=== PATIENT | female | born 1975 | race Caucasian/White ===

== ENCOUNTER → 2023-07-04 06:29 | Day surgery (SDC) | payer OTHER, SELFPAY | LOC: GI 06:29 | PROVIDERS: ATTENDING PHYSICIAN Internal Medicine; FAMILY PHYSICIAN Nurse Practitioner Adult Health | DX: Z12.11 Encounter for screening for malignant neoplasm of colon (principal) | CPT/HCPCS: G0121 ==

== ENCOUNTER → 2023-11-20 13:01 | Outpatient (REF) | payer OTHER, SELFPAY | LOC: WDC 13:01 | PROVIDERS: ATTENDING PHYSICIAN Obstetrics & Gynecology; FAMILY PHYSICIAN Nurse Practitioner Adult Health | DX: Z12.31 Encounter for screening mammogram for malignant neoplasm of breast (principal) | CPT/HCPCS: 77063; 77067 ==

== ENCOUNTER → 2024-03-26 08:52 | Outpatient (REF) | payer OTHER, SELFPAY | LOC: WDC 08:52 | PROVIDERS: ATTENDING PHYSICIAN Obstetrics & Gynecology; FAMILY PHYSICIAN Nurse Practitioner Adult Health | DX: N63.21 Unspecified lump in the left breast, upper outer quadrant (principal) | CPT/HCPCS: 76642 ==

== ENCOUNTER → 2024-04-04 09:33 | Outpatient (REF) | payer OTHER, SELFPAY ==
--- NOTE | 2024-04-04 14:01 | OID.BR.INTR ---
[facility] Breast Navigator - Initial
- -
Date of Contact: 04/04/24
Met with patient. Will follow up as needed per protocol.
== END ==
LOC: WDC 09:33
PROVIDERS: ATTENDING PHYSICIAN Obstetrics & Gynecology; FAMILY PHYSICIAN Nurse Practitioner Adult Health
DX: N63.21 Unspecified lump in the left breast, upper outer quadrant (principal); N63.32 Unspecified lump in axillary tail of the left breast
CPT/HCPCS: 88172; 88173; 10005; 88177

== ENCOUNTER → 2024-04-11 12:51 | Outpatient (REF) | payer OTHER, SELFPAY | LOC: WDC 12:51 | PROVIDERS: ATTENDING PHYSICIAN Surgery | DX: R92.2 Inconclusive mammogram (principal); C50.412 Malignant neoplasm of upper-outer quadrant of left female breast | CPT/HCPCS: 76641 ==

== ENCOUNTER → 2024-04-15 12:06 | Outpatient (REF) | payer OTHER, SELFPAY | LOC: CLAB 12:06 | PROVIDERS: ATTENDING PHYSICIAN Surgery | DX: C50.412 Malignant neoplasm of upper-outer quadrant of left female breast (principal) | CPT/HCPCS: 88305; 88341; 88342; 88360 ==

== ENCOUNTER → 2024-04-23 12:37 | Outpatient (REF) | payer OTHER, SELFPAY | LOC: RAD 12:37 | PROVIDERS: ATTENDING PHYSICIAN Internal Medicine Hematology & Oncology; FAMILY PHYSICIAN Nurse Practitioner Adult Health | DX: C50.412 Malignant neoplasm of upper-outer quadrant of left female breast (principal) | CPT/HCPCS: 71046 ==

== ENCOUNTER → 2024-04-23 13:32 | Outpatient (REF) | payer OTHER, SELFPAY ==
[2024-04-23 15:36] LABS: % Basophils 0.4 % (0-2); % Eosinophils 0.9 % (0-6); % Monocytes 7.1 % (1.7-9.3); % Neutrophils 51.6 % (42.2-75.2); Absolute Eosinophils 0.1 10^3/uL (0-0.7); Absolute Lymphocytes 2.2 10^3/uL (1.2-3.4); Absolute Monocytes 0.4 10^3/uL (0.1-0.6); Absolute Neutrophils 2.9 10^3/uL (1.4-6.5); Hematocrit 38.9 % (37.0-47.0); Hemoglobin 13.7 g/dL (12.0-16.0); Mean Corp Hgb Conc. 35.2 g/dL (33.0-37.0); Mean Corpuscular Hgb 33.7 pg (27.0-31.0); Mean Corpuscular Volume 95.8 fL (81.0-99.0); Mean Platelet Volume 9.1 fL (7.4-10.4); Platelet Count 281 10^3/uL (130-400); Red Blood Cell Count 4.06 10^6/uL (4.20-5.40); Red Cell Dist. Width 11.1 % (11.5-14.5); White Blood Cell Count 5.5 10^3/uL (4.8-10.8)
[2024-04-23 16:37] LABS: ALT (SGPT) 18 U/L (0-35); AST (SGOT) 24 U/L (14-36); Albumin 4.6 g/dl (3.5-5.0); Alkaline Phosphatase 55 U/L (38-126); Blood Urea Nitrogen 15 mg/dl (7-17); Calcium 9.7 mg/dl (8.4-10.2); Carbon Dioxide 28 mmol/L (22-30); Chloride 101 mmol/L (98-107); Glucose 95 mg/dl (70-99); Potassium 4.1 mmol/L (3.5-5.1); Sodium 138 mmol/L (135-145); Total Bilirubin 0.5 mg/dl (0.2-1.3); Total Protein 7.6 g/dl (6.3-8.2); eGFR > 60.00
== END ==
LOC: OIDL 13:32
PROVIDERS: ATTENDING PHYSICIAN Internal Medicine Hematology & Oncology; FAMILY PHYSICIAN Nurse Practitioner Adult Health
DX: C50.412 Malignant neoplasm of upper-outer quadrant of left female breast (principal)
CPT/HCPCS: 36415; 80053; 85025

== ENCOUNTER 2024-04-29 06:14 | Day surgery (SDC) | payer OTHER, SELFPAY ==
[2024-04-29] VITALS (8 sets, daily range): BP systolic 93–120; BP diastolic 60–79; BMI 23.9
[2024-04-29] MEDS: NSS 1000 IV (12:39)
[2024-04-29] MEDS: TYLENOL 1000 MG PO (12:39)
[2024-04-29] MEDS: VANCOCIN 200 IV (12:42)
--- NOTE | 2024-04-29 14:12 | W.IMMPOSTOP ---
Surgical Immed Post Op Note
-
Primary Surgeon: Rafat
Assisting Surgeon: None
Pre-op Diagnosis: Left breast ca
Post-op Diagnosis: Same
Procedure Performed: Insertion right portacath
Anesthesia Type: TIVA
Specimen / Cultures: None
Estimated Blood Loss: 2cc
Complications: None
Operative Findings: None
--- NOTE | 2024-04-29 14:13 | OR.RPT ---
Operative Report
Operative Report
Pre-Op DX: left breast ca
Post-Op DX: left breast ca
Procedure: Insertion right portacath
Surgeon: Rafat
The patient is a 48-year-old female with HER2 positive left breast carcinoma who presents for right Port-A-Cath insertion for the administration of neoadjuvant chemotherapy. The patient presented to same-day surgical services where she verified
site and procedure. A liter of normal saline was infused intravenously and DVT and antibiotic prophylaxis were provided. The patient was taken to the operating room and in the supine position with shoulder roll in place, the right chest and neck
were prepped and draped in the usual sterile fashion. All tissues were anesthetized with 1% lidocaine plain after an appropriate timeout procedure was performed. Patient was placed in Trendelenburg position and via Seldinger technique right
subclavian vein was entered percutaneously in the first attempt. Guidewire was advanced under fluoroscopic guidance into the superior vena cava and the needle was withdrawn and the wire was secured to the drapes. Inferior to the exit site of the
guidewire a subcutaneous port pocket was fashioned sharply and with the cautery. A low-profile single-lumen port flushed with heparinized saline was passed into the pocket catheter was passed to the exit site of the guidewire and cut to a length of
19 cm under fluoroscopic guidance. This was securely attached to the hub of the catheter. Under fluoroscopic guidance the wire tract was dilated. Dilator and sheath were then passed over the wire and the wire and dilator were removed. The
catheter passed easily through the tear-away sheath which was removed. Good position of the tip in the superior vena cava was noted. The port aspirated and flushed well. The patient was taken out of Trendelenburg position hemostasis was verified
and Marcaine 0.5% plain was instilled into all tissues. Wound was closed using simple interrupted 3-0 plain of subcutaneous tissue and a running subcuticular 4 Monocryl on skin. Surgical glue and a sterile compressive dressing were applied. All
sponge needle and instrument counts were correct. The patient was transferred to same-day surgery where a stat portable chest x-ray will be obtained.
([id number])
== END 2024-04-29 15:40 | disposition home or self-care (01) ==
LOC: SDS 06:14
PROVIDERS: ATTENDING PHYSICIAN Surgery
PROC: 02HV33Z Insertion of Infusion Device into Superior Vena Cava, Percutaneous Approach (ICD-10-PCS; 2024-04-29)
PROC: 0JH63WZ Insertion of Totally Implantable Vascular Access Device into Chest Subcutaneous Tissue and Fascia, Percutaneous Approach (ICD-10-PCS; 2024-04-29)
DX: C50.912 Malignant neoplasm of unspecified site of left female breast (principal); Z17.31 Human epidermal growth factor receptor 2 positive status
CPT/HCPCS: 36561; 71045; 76000; C1788

== ENCOUNTER → 2024-04-30 10:29 | Outpatient (REF) | payer OTHER, SELFPAY | LOC: RCS 10:29 | PROVIDERS: ATTENDING PHYSICIAN Internal Medicine Hematology & Oncology; FAMILY PHYSICIAN Nurse Practitioner Adult Health | DX: C50.412 Malignant neoplasm of upper-outer quadrant of left female breast (principal) | CPT/HCPCS: 93306; 93356 ==

== ENCOUNTER → 2024-05-06 08:28 | Outpatient (REF) | payer OTHER, SELFPAY | LOC: WDC 08:28 | PROVIDERS: ATTENDING PHYSICIAN Surgery | DX: C50.412 Malignant neoplasm of upper-outer quadrant of left female breast (principal) | CPT/HCPCS: 19285; A4648 ==

== ENCOUNTER → 2024-05-21 14:32 | Outpatient (REF) | payer OTHER, SELFPAY | LOC: WDC 14:32 | PROVIDERS: ATTENDING PHYSICIAN Internal Medicine Hematology & Oncology | DX: C50.412 Malignant neoplasm of upper-outer quadrant of left female breast (principal); N64.59 Other signs and symptoms in breast | CPT/HCPCS: 76642 ==

== ENCOUNTER 2024-06-06 06:22 | Outpatient (RCR) | payer OTHER, SELFPAY | END 2024-06-06 23:59 | disposition home or self-care (01) | LOC: RPT 06:22 | PROVIDERS: ATTENDING PHYSICIAN Internal Medicine Cardiovascular Disease; FAMILY PHYSICIAN Internal Medicine | DX: C50.412 Malignant neoplasm of upper-outer quadrant of left female breast (principal); R53.0 Neoplastic (malignant) related fatigue; Z73.6 Limitation of activities due to disability; M62.81 Muscle weakness (generalized) | CPT/HCPCS: 97110; 97163; 97530 ==

== ENCOUNTER → 2024-06-23 16:31 | Outpatient (REF) | payer OTHER, SELFPAY | LOC: MRI 3T 16:31 | PROVIDERS: ATTENDING PHYSICIAN Surgery; FAMILY PHYSICIAN Nurse Practitioner Adult Health | DX: N64.59 Other signs and symptoms in breast (principal) | CPT/HCPCS: 77049; A9585 ==

== ENCOUNTER 2024-06-25 13:06 | Outpatient (RCR) | payer OTHER, SELFPAY | END 2024-06-25 23:59 | disposition home or self-care (01) | LOC: RPT 13:06 | PROVIDERS: ATTENDING PHYSICIAN Internal Medicine Cardiovascular Disease; FAMILY PHYSICIAN Internal Medicine | DX: C50.412 Malignant neoplasm of upper-outer quadrant of left female breast (principal); R53.0 Neoplastic (malignant) related fatigue; Z73.6 Limitation of activities due to disability; M62.81 Muscle weakness (generalized) | CPT/HCPCS: 97110; 97530 ==

== ENCOUNTER → 2024-08-02 10:17 | Outpatient (REF) | payer OTHER, SELFPAY | LOC: RCS 10:17 | PROVIDERS: ATTENDING PHYSICIAN Internal Medicine Cardiovascular Disease; FAMILY PHYSICIAN Nurse Practitioner Adult Health | DX: Z85.3 Personal history of malignant neoplasm of breast (principal); T45.1X5D Adverse effect of antineoplastic and immunosuppressive drugs, subsequent encounter; R00.0 Tachycardia, unspecified | CPT/HCPCS: 93306; 93356 ==

== ENCOUNTER 2024-08-06 16:24 | Outpatient (RCR) | payer OTHER, SELFPAY | END 2024-08-06 23:59 | disposition home or self-care (01) | LOC: RPT 16:24 | PROVIDERS: ATTENDING PHYSICIAN Internal Medicine Cardiovascular Disease; FAMILY PHYSICIAN Internal Medicine | DX: C50.412 Malignant neoplasm of upper-outer quadrant of left female breast (principal); R53.0 Neoplastic (malignant) related fatigue; M62.81 Muscle weakness (generalized); Z73.6 Limitation of activities due to disability | CPT/HCPCS: 97110; 97112; 97530 ==

== ENCOUNTER 2024-08-25 14:05 | Outpatient (RCR) | payer OTHER, SELFPAY | END 2024-08-25 23:59 | disposition home or self-care (01) | LOC: RPT 14:05 | PROVIDERS: ATTENDING PHYSICIAN Internal Medicine Cardiovascular Disease; FAMILY PHYSICIAN Internal Medicine | DX: C50.412 Malignant neoplasm of upper-outer quadrant of left female breast (principal); R53.0 Neoplastic (malignant) related fatigue; M62.81 Muscle weakness (generalized); Z73.6 Limitation of activities due to disability | CPT/HCPCS: 97110; 97530 ==

== ENCOUNTER → 2024-09-20 08:34 | Outpatient (REF) | payer OTHER, SELFPAY | LOC: MRI 08:34 | PROVIDERS: ATTENDING PHYSICIAN Internal Medicine Hematology & Oncology; FAMILY PHYSICIAN Nurse Practitioner Adult Health | DX: C50.412 Malignant neoplasm of upper-outer quadrant of left female breast (principal) | CPT/HCPCS: 70553; A9575 ==

== ENCOUNTER 2024-09-23 09:09 | Outpatient (RCR) | payer OTHER, SELFPAY | END 2024-09-23 23:59 | disposition home or self-care (01) | LOC: RPT 09:09 | PROVIDERS: ATTENDING PHYSICIAN Surgery; FAMILY PHYSICIAN Internal Medicine | DX: C50.412 Malignant neoplasm of upper-outer quadrant of left female breast (principal); R53.0 Neoplastic (malignant) related fatigue; Z73.6 Limitation of activities due to disability; M62.81 Muscle weakness (generalized) | CPT/HCPCS: 97163; 97164; 97530 ==

== ENCOUNTER 2024-09-24 06:12 | Inpatient (IN) | payer OTHER, SELFPAY ==
[2024-09-24] VITALS (15 sets, daily range): BP systolic 0–109; BP diastolic 56–71; BMI 22.5
[2024-09-24] MEDS: NORMOSOL-R/PLASMALYTE-A 1000 IV (06:45)
[2024-09-24] MEDS: EMEND 40 MG PO (06:57)
--- NOTE | 2024-09-24 07:09 | W.SUR.PREOP ---
Pre-Operative Surgical Note
-
I have examined this patient prior to the performance of the scheduled procedure.
The patient's condition is unchanged from the time of the current History and
Physical and the patient is able to undergo the scheduled procedure.
[2024-09-24] MEDS: LOVENOX 0.2 MG SC (08:11)
--- NOTE | 2024-09-24 11:03 | W.IMMPOSTOP ---
Surgical Immed Post Op Note
-
Primary Surgeon: marcelo
Assisting Surgeon: None
Pre-op Diagnosis: Left breast ca
Post-op Diagnosis: Same
Procedure Performed: Bilateral nipple-sparing mastectomies, bilateral sentinel node mappings and biopsies
Anesthesia Type: LMA general
Specimen / Cultures: Bilateral breasts, right and left sentinel nodes, right retroareolar tissue
Estimated Blood Loss: 20cc
Complications: None
Operative Findings: None
--- NOTE | 2024-09-24 11:05 | OR.RPT ---
Operative Report
Operative Report
Date of procedure: 09/24/2024
Surgeon: Rafat
Preoperative diagnosis: Left breast carcinoma status post neoadjuvant chemotherapy
Postoperative diagnosis: Same
Procedure: Bilateral nipple sparing mastectomies and bilateral sentinel lymph node mapping and biopsies
Patient is a 48-year-old female who presented with left-sided HER2 positive breast carcinoma. She underwent neoadjuvant chemotherapy and presents now for definitive surgical resection. On post chemo MRI there is a question of 2 areas in the right
breast for which biopsy had been recommended. Because the patient declined those biopsies and wanted a prophylactic mastectomy on the right sentinel node mapping and biopsy will be performed in case there is a new cancer diagnosis on the right side.
On the day prior to the procedure the patient presented to the [facility] where technetium radiotracer injection was performed on both sides. On the day of the procedure the patient presented to same-day surgical services. She was
prepped and verified site and procedures. DVT and antibiotic prophylaxis were provided. She was taken to the operating room and in the supine position intravenous sedation general anesthesia with an LMA mask was induced. All team members
including Plastics was present for an appropriate timeout.
Ann catheter was inserted using aseptic technique and both chest and upper abdominal abdominal regions were prepped and draped in usual sterile fashion. Attention was first turned to the left side where an inframammary incision was made sharply
with the blade. The breast was elevated off the pectoral fascia using the PlasmaBlade and the Invuity lighted retractor. Then the breast skin and subcutaneous tissue was off the breast tissue in the same manner. The breast was taken off
the chest wall, oriented. and time out of body was noted. It was sent for permanent analysis. There was some redundant tissue around the right nipple areolar complex which was excised and sent under separate cover. Then clavipectoral fascia was
incised and using the neoprobe one sentinel node packet was encountered and excised. This was sent for permanent analysis
Moist dressing was applied and plastic surgery entered to begin the plastic surgical reconstruction.
We switched to the left side and in the same fashion formed an inframammary incision and removed breast tissue while preserving the nipple complex. A total of 3 sentinel nodes were harvested from the left side dual tracer had been utilized after
appropriate massage and these lymph nodes were sent for permanent analysis. Hemostasis was verified and a moist pack was placed plastic surgery continued with the reconstructive portion of the procedure.
At this juncture all sponge needle and instrument counts were correct
([id number])
Warden Node Bx Breast Cancer
Warden Node Bx Breast Cancer
Operation performed with curative intent: Yes
Tracer(s) to ID Warden Nodes in Non-Neoadjuvant setting: Radioactive Tracer
Tracer(s) to ID Sentinal Nodes in the Neoadjuvant Setting: Dye and Radioactive Tracer
All nodes at end of dye-filled Lymphatic Channel removed: Yes
All Significantly Radioactive Nodes were removed: Yes
All Palpably Suspicious Nodes were Removed: Yes
Bx Proven Pos Nodes Marked Prior to Chemo ID'd & Removed: N/A
--- NOTE | 2024-09-24 12:43 | W.DCSUMMARY ---
Discharge Summary
Discharge Data
Date of Admission: 09/24/24
Date of Discharge: 09/25/24
-
Pending Results: No
Hospital Course
Routine postoperative course following bilateral mastectomy and immediate reconstruction with tissue expanders
Discharged to home with VN. Ambulating, po meds, regular diet.
Discharge Plan
-
Patient Disposition: Home with Home Care
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
Condition: Good
Diet: No restrictions
Activity: No strenuous activity
Additional Activity: T-Jose arms for ROM, no heavy lifting > 10lbs
Driving Restrictions: Not until seen by your Dr
Bathing Restrictions: OK to Shower
Other Services: VN
Wound Care: Strip and record drain output twice daily
Referrals:
Chelo Morin CRNP [Family Provider, General]
Prescriptions:
New
gabapentin 100 mg Capsule
100 mg PO TID 90 Days Qty: 270 0RF
tramadol 50 mg Tablet
50 mg PO Q6HPRN PRN (Reason: pain) 7 Days Qty: 15 0RF
acetaminophen 500 mg capsule
1,000 mg PO QID PRN (Reason: Pain) Qty: 360 0RF
diazepam 5 mg Tablet
5 mg PO TIDPRN PRN (Reason: Muscle Spasms) 14 Days Qty: 42 0RF
cefadroxil 500 mg capsule
500 mg PO BID Qty: 42 0RF
Continued
spironolactone 100 mg Tablet
100 mg PO HS
Emgality Syringe 120 mg/mL Syringe
120 mg SC QMONTH
sumatriptan succinate [Imitrex] 100 mg Tablet
100 mg PO ONCE PRN (Reason: migraine)
minoxidil 2.5 mg Tablet
0.6 mg PO DAILY
thyroid (pork) [[place] Thyroid] 90 mg Tablet
90 mg PO .TUTHSASU
thyroid (pork) [[place] Thyroid] 120 mg Tablet
120 mg PO MOWEFR
omega 3-bro-vbi-fish oil [Fish Oil] 60-90-500 mg Capsule
1 cap PO DAILY
magnesium 200 mg Tablet
200 mg PO DAILY
vitamin U07-xbpco acid 0.5-1 mg Tablet
1 tab PO DAILY
cholecalciferol (vitamin D3) [Vitamin D3] 25 mcg (1,000 unit) Tablet
25 mcg PO DAILY
ferrous sulfate 27 mg iron Tablet
27 mg PO DAILY
Probiotic
1 dose PO DAILY
Nuadapt
1 tab PO DAILY
Nutrafol
4 tab PO HS
Veozah 45 mg Tablet
45 mg PO HS
Discontinued
cephalexin 500 mg Capsule
500 mg PO QID
Discharge Orders:
Discharge Patient (As Directed); Ordered 09/25/24
Ordered By: Nish Prieto
Discharge Date and Time
Discharge Date/Time: 09/25/24 13:10
Print Language: FAROESE
--- NOTE | 2024-09-24 12:43 | W.IMMPOSTOP ---
Surgical Immed Post Op Note
-
Primary Surgeon: ALLEN Prieto MD
Assisting Surgeon:
Pre-op Diagnosis: Breast cancer
Post-op Diagnosis: Same
Procedure Performed: Bilateral prepectoral breast reconstruction with tissue expanders, ADM, spy angiography
Anesthesia Type: General
Specimen / Cultures: Per Dr. Douglass
Estimated Blood Loss: 30 cc
Complications: None
Operative Findings: As expected
[2024-09-24] MEDS: DILAUDID 0.25 MG IV ×2 (12:44→13:36)
--- NOTE | 2024-09-24 12:44 | OR.RPT ---
Operative Report
Operative Report
Date of surgery: 09/24/2024
Surgeon: ALLEN Prieto MD
Preoperative diagnosis: Breast cancer
Postoperative diagnosis: Same
Procedure:
1. Bilateral immediate breast reconstruction with prepectoral tissue expanders
2. Total anterior coverage technique for ADM wrap
3. Spy angiography
Complications: None
Anesthesia: General
EBL: 30cc
Utilization Review Nurse size: 12 cm
Indications for procedure: Patient was referred to me by Dr. Douglass with a recent diagnosis of breast cancer. She was planned to undergo bilateral mastectomy. We discussed her options for breast reconstruction at length including implant based
and autologous options. The patient opted for immediate reconstruction with tissue expanders. She understands that the final reconstruction will be staged. We also discussed the use of ADM and spy angiography. Risks include reconstructive
failure, capsular contracture, infection, delayed wound healing, mastectomy skin flap necrosis, hematoma, seroma and need for repeat procedure. Patient understood these risks and desired to proceed. Consents were signed accordingly.
Procedure in detail: Patient was identified the preoperative area and the surgical site was confirmed to be the bilateral breast. All questions were answered and consents were confirmed. Patient was then sat upright and normal anatomical landmarks
were marked including midline and inframammary fold. Patient was then taken back to the operating room placed supine on the table. She was prepped and draped in the usual sterile fashion using ChloraPrep solution. A Ann catheter was placed. A
timeout for patient safety was performed was confirmed that bilateral SCDs were in place and preoperative antibiotics administered. The procedure began with Dr. Douglass first performing the mastectomy. Her op report will be dictated separately.
When I entered the procedure, the first sided mastectomy had been completed. As such I inspected the wound bed of the chest wall and ensured meticulous hemostasis. The base width was measured and appropriate tissue desulfurizer machine was selected. Two 6 x
16 sheets of Cortiva ADM were soaked in dilute Betadine solution and passed through the skin graft mesher on carrier of 1-1.5. This construct was then draped around the tissue desulfurizer machine in a total anterior coverage technique. The desulfurizer machine ADM
construct was then sutured to the chest wall with a series of 2-0 silk sutures. Pectoralis and intercostal blocks were performed with Marcaine. 2 drains were then placed in the preaxial area line with a long subcutaneous tunnel and sutured in
place with 2-0 Prolene sutures. The wound was irrigated with double antibiotic solution and dilute Betadine. The mastectomy incisions were then closed with a series of 3-0 Vicryl's in the deep subcutaneous tissues followed by 3-0 and 4-0
Monocryl's in the deep dermis and superficial skin.
Attention was then placed on the contralateral side after completion of the mastectomy. The exact same procedure was performed. An desulfurizer machine of the same size was opened and 2 sheets of ADM were soaked in Betadine, meshed, and draped around the
anterior surface of the desulfurizer machine in a total anterior coverage technique. The construct was then sutured to the chest wall using 2-0 silks. Pectoralis and intercostal blocks were performed. Meticulous hemostasis was ensured and the wound was
irrigated with combination of double antibiotic solution consisting of Ancef and gentamicin as well as dilute Betadine. The wound was closed in layers with 3-0 Vicryl followed by 3-0 Monocryl and 4-0 Monocryl superficial skin.
Spy angiography was performed after closure to ensure adequate vascularity of the bilateral mastectomy flaps. This was confirmed. The wounds were dressed accordingly and a supportive bra was placed. The patient was extubated taken to the PACU for
further care. All counts were correct at the end the case was performed out complication.
[2024-09-24] MEDS: ANCEF 5 IV (16:05)
[2024-09-24] MEDS: COMPAZINE 5 MG IV ×2 (16:50→22:59)
--- NOTE | 2024-09-24 16:58 | PTCARENOTE ---
Pt arrived to [facility] s/p b/l masectomy with reconstruction. Pt arrived with 2 CIRILO drains on the right breast and 2 CIRILO drains on the left breast. B/l breasts dressing with 4x4, tegaderm and surgical bra. Knee high SCDs hooked up. Admission questions
answered. Bed locked and in lowest position. Care ongoing.
[2024-09-24] MEDS: TYLENOL 1000 MG PO ×2 (17:10→23:10)
[2024-09-25] MEDS: ANCEF 5 IV ×2 (01:01→09:16)
[2024-09-25 03:05] VITALS: BP 98/66
[2024-09-25] MEDS: ULTRAM 100 MG PO (04:32)
[2024-09-25] MEDS: TYLENOL 1000 MG PO ×2 (05:12→11:35)
[2024-09-25 06:22] LABS: Hematocrit 33.5 % (37.0-47.0); Hemoglobin 11.5 g/dL (12.0-16.0)
[2024-09-25 07:03] LABS: Blood Urea Nitrogen 16 mg/dl (7-17); Calcium 9.2 mg/dl (8.4-10.2); Carbon Dioxide 25 mmol/L (22-30); Chloride 105 mmol/L (98-107); Estimated Creatinine Clearance 74 ml/min; Glucose 121 mg/dl (70-99); Potassium 4.4 mmol/L (3.5-5.1); Sodium 134 mmol/L (135-145); eGFR > 60.00
[2024-09-25 07:05] VITALS: BP 113/63
--- NOTE | 2024-09-25 09:10 | CM ---
CM following re: discharge planning.
Reviewed pt's chart, met with pt and pt's at bedside.
Pt is a 48 year old female, admitted with primary dx of POD#1 Bilateral prepectoral breast reconstruction with tissue expanders, ADM, spy angiography.
Pt reports she lives with and 2 daughters 9 and 16 year of age in a [place]. 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
CM consulted to arrange VN services for drain care. CM discussed it with the pt and she expressed her agreement. VN choices given. [facility] preferred. A referral to VN made.
Discharge order noted. Pt is aware. Pt's will transport home.
PCP: Chelo Morin
Pharmacy: [facility]
Please fax discharge instructions to [facility] at [phone]
D/C plan: home with [facility] and family support. to transport.
[2024-09-25] MEDS: FLUSH (NSS) 1 FLUSH IV (09:16)
--- NOTE | 2024-09-25 09:54 | VNURNOTE ---
Home Health Liaison met with patient and spouse at bedside to discuss [facility] nurse/therapy, visits, schedule and homebound status. Patient is agreeable and understands that visits at home will be 2-3 x per week to assess and teach medical and drain
management. Patient's mom is a retired RN and will assisting her at home as well. Patient is aware that [facility] will contact them for start of care in 1-2 days after discharge from .
[facility] referral completed in Care Port.
[2024-09-25] MEDS: VALIUM 5 MG PO (10:59)
[2024-09-25 11:38] VITALS: BP 115/63
== END 2024-09-25 13:10 | disposition home health service (06) | DRG 581 ==
LOC: 2 SOUTH 06:12
PROVIDERS: ADMITTING PHYSICIAN Surgery; ATTENDING PHYSICIAN Surgery Plastic and Reconstructive Surgery; FAMILY PHYSICIAN Nurse Practitioner Adult Health
PROC: 0HTV0ZZ Resection of Bilateral Breast, Open Approach (ICD-10-PCS; 2024-09-24)
PROC: 07B90ZX Excision of Left Internal Mammary Lymphatic, Open Approach, Diagnostic (ICD-10-PCS; 2024-09-24)
PROC: 0HHV0NZ Insertion of Tissue Expander into Bilateral Breast, Open Approach (ICD-10-PCS; 2024-09-24)
PROC: 07B80ZX Excision of Right Internal Mammary Lymphatic, Open Approach, Diagnostic (ICD-10-PCS; 2024-09-24)
PROC: C71L1ZZ Planar Nuclear Medicine Imaging of Upper Chest Lymphatics using Technetium 99m (Tc-99m) (ICD-10-PCS; 2024-09-24)
DX: C50.412 Malignant neoplasm of upper-outer quadrant of left female breast (principal); Z92.21 Personal history of antineoplastic chemotherapy; Z17.31 Human epidermal growth factor receptor 2 positive status
CPT/HCPCS: 80048; 85014; 85018; 88307; 88342; C1789; L8000; Q4100

== ENCOUNTER 2024-10-06 00:02 | Inpatient (IN) | payer OTHER, SELFPAY ==
[2024-10-05 20:23] VITALS: BP 126/78
--- NOTE | 2024-10-05 21:04 | ED.GENMED ---
History of Present Illness
General
Chief Complaint: Post Operative Problem(s)
Source: patient and family
Time Seen by Provider: 10/05/24 20:47
History of Present Illness
History of Present Illness:
This patient is a 48-year-old female with a recent diagnosis of breast cancer status post double mastectomy with spacer placement who has been recovering well at home. 2 days ago she noted what she thought was 'irritation' at the bilateral drainage
site. Yesterday, she noted redness at that area which has gotten progressively worse today associated with a fever at 3 PM. She denies cough, sore throat, rhinorrhea, chest pain, dyspnea, urinary symptoms, vaginal pain or discharge, diarrhea,
constipation. She has mild lower back discomfort which she thinks may be related to positioning. Otherwise she denies any complaints. Patient does report a recent history of a port infection and has been on oral antibiotics for several weeks.
Past History
Past History
ED Past Medical History: Other (Thyroid disease)
ED Past Surgical History: Gynecological
Social History
Tobacco: Non-smoker
Alcohol: None
Drug: None
Personal:
Living: with family
Phy Exam
Physical Exam
Physical Exam:
GENERAL: Alert , in no apparent distress
EYE: pupils equal and reactive, no photophobia
NECK: Supple, no significant adenopathy.
ENT: o/p clr, mmm, no trismus, no drool.
CARDIAC: Regular rate and rhythm, tachycardic.
LUNGS: Clear breath sounds bilaterally, no acute respiratory distress, no wheezes/rales/rhonchi
ABDOMEN: Soft, without focal tenderness, no r/g
NEUROLOGICAL: Alert and oriented, no focal neuro deficits
SKIN: Warm and dry, skin intact.
MUSCULOSKELETAL: No edema, well perfused.
PSYCH: Normal and appropriate interaction.
BREAST: bilat surg incision c/d/i. Bilat drain sites with warmth/erythema/sl ttp without fluctuance/crepitus. Drainage is serosang
Sepsis
Sepsis Screening
Sepsis Assessment: Sepsis
Sepsis Screen
Sepsis Screen: Sepsis
Date: 10/06/24
Time: 12:44
Course
Orders/Labs/Results
Orders:
Orders
10/05/24 21:03
Cardiac Monitoring- Treatment ONCE
0.9% Sodium Chloride 1000 ml [Nss] 1,500 ml IV BOLUS
Acetaminophen [Tylenol] 1,000 mg PO NOW STA
Pulse Ox/cont/shift [RESP] Urgent
Quantity: 1
10/05/24 21:04
CR Chest - 2 Views Urgent
Comment:
Reason For Exam: fever, recent mastectomy
10/05/24 21:10
Lactic Acid Q4H
Comment: CANCEL 2nd LACTIC ACID IF 1st LACTIC ACID IS LESS THAN 2
10/05/24 21:11
Complete Blood Count/With Diff Urgent
Comprehensive Metabolic Panel Urgent
Blood Culture Q30M
DARVIN Source: Blood/Venous
Specimen Description:
10/05/24 21:25
Blood Culture Q30M
DARVIN Source: Blood/Venous
Specimen Description:
10/05/24 22:07
Lactated Ringers [Lr] 500 ml IV BOLUS
10/05/24 22:29
Vancomycin [Vancocin] 1,500 mg 0.9% Sodium Chloride 500 ml [Nss] 500 ml IV NOW
10/05/24 22:59
Admit/Transfer Patient As Directed
Co-Sign Provider:
Level of Care: Inpatient admission
Assign to:: Telemetry
Physician / Group: Gilles
Diagnosis: Sepsis
Reason for Telemetry: Arrhythmia
Date to Stop Telemetry: 10/08/24
Time to Stop Telemetry: 11:00
Reason for Hospitalization: IV abx
Expected length of stay greater than two midnights?: Yes
ELOS- Estimated Length of Stay in days: 3
I certify the patient meets the requirements for IP care: Yes
Urinalysis Reflex To Culture Urgent
Date Specimen was Collected: 10/05/24
Time Specimen was Collected: 22:55
PRN Pain Medication Management As Directed
May give lesser potent ordered pain med per pt: Yes
preference::
Protocol:: Medication orders for pain may be administered in a
manner that supports deferring to patient preference
when the pt is:
- Requesting an ordered lesser potent pain medication.
Least to most potent pain medications are defined
as: acetaminophen < NSAID < tramadol < opioids
(morphine, oxycodone, hydromorphone).
- Requesting a lesser dose of the same medication IF
ORDERED.
- Requesting a less intrusive route of administration
if both routes are prescribed by the provider (PO <
IV).
10/05/24 23:01
Code Status As Directed
Resuscitation Status: Full Code
10/05/24 23:48
EKG [Electrocardiogram (*1)] Urgent
Reason for Study: Abnormal EKG
10/05/24 23:49
EKG- Treatment ONCE
10/06/24 00:40
Acetaminophen [Tylenol] 650 mg PO Q4HPRN PRN
Cefepime HCl [Maxipime] 1,000 mg IV Q6
Diazepam [Valium] 5 mg PO TIDPRN PRN Muscle Spasms
Tramadol HCl [Ultram] 50 mg PO Q6HPRN PRN moderate pain moderate pain
VANCOMYCIN Pharmacy to Dose [VANCOCIN Pharmacy to Dose] 1 each Pharmacy To Prepare [Call Pharmacy To Prepare] 0 ml IV PER PROTOCOL
10/06/24 00:40
Breast Surgery Consult Routine
Consulting Provider: Latoya Douglass
Was physician already notified: Yes
Consult Notification Routine
Specialty to Notify: Infectious Disease
Date consulting provider notified: 10/06/24
Time consulting provider notified: 08:40
Notified:: Provider
Comment: tt
INFECTIOUS DISEASE CONSULT Routine
Consulting Provider: Cory Higginbotham
Was physician already notified: No
Reason for consult: SIRS, recent mastectomy and recent port infection
PLASTIC SURGERY CONSULT Routine
Consulting Provider: Nish Prieto
Was physician already notified: Yes
Activity As Directed
Activity Level: Out of Bed-Early Mobility
With Assistance
Vital Signs As Directed
Frequency: Per unit guidelines
DX Deep Vein Thrombosis Video Routine
10/06/24 Breakfast
Regular
At Your Request: Full Participation
Does patient need a safe tray?: No
10/06/24 07:05
Basic Metabolic Panel IN AM
Complete Blood Count/No Diff IN AM
10/06/24 08:00
Minoxidil [Loniten] 0.6 mg PO DAILY
10/06/24 18:00
Enoxaparin Sodium [Lovenox] 40 mg SC QPM
10/06/24 22:00
Spironolactone [Aldactone] 100 mg PO HS
10/06/24 22:59
thyroid (pork) [[place] Thyroid] See Dose Instructions PO MOWEFR
10/07/24 08:00
thyroid (pork) [[place] Thyroid] See Dose Instructions PO [id number]@0800
10/08/24 11:00
DC Protocol for Telemetry ONCE
Abnormal Lab Results
10/05/24 10/05/24
21:10 21:11
RBC 3.23 L 10^6/uL
(4.20-5.40)
Hgb 11.2 L g/dL
(12.0-16.0)
Hct 32.1 L %
(37.0-47.0)
MCV 99.4 H fL
(81.0-99.0)
MCH 34.7 H pg
(27.0-31.0)
Absolute Neuts (auto) 6.8 H 10^3/uL
(1.4-6.5)
Neutrophils % 77.6 H %
(42.2-75.2)
Lymphocytes % 15.2 L %
(20.5-51.1)
Sodium 131 L mmol/L
(135-145)
Chloride 97 L mmol/L
(98-107)
BUN 20 H mg/dl
(7-17)
Glucose 110 H mg/dl
(70-99)
Lactic Acid 0.6 L mmol/L
(0.7-2.0)
10/05/24 21:11
10/05/24 21:11
Vital Signs
Initial and Last Documented VS:
Initial Vital Signs
Temp Pulse Resp BP Pulse Ox
102.3 F H 136 16 126/78 96
10/05/24 20:23 10/05/24 20:23 10/05/24 20:23 10/05/24 20:23 10/05/24 20:23
Last Documented Vital Signs
Temp Pulse Resp BP Pulse Ox
98.9 F 99 16 102/65 100
10/06/24 07:33 10/06/24 08:42 10/06/24 07:33 10/06/24 08:42 10/06/24 07:33
*Pulse Oximetry
SaO2: 96
Oxygen Mode of Delivery: Room air
Patient hypoxic: no
*Critical Care Note
Total Time (30-74mins, 75-104mins- exclusive of procedures): Not Applicable
Update Note
Update Note:
Patient presents to the Emergency Department with ___fever and discomfort and redness at bilateral drain sites
Number and Complexity of Problems Addressed at the Encounter
� Chronic conditions affecting care:
� Acute Exacerbation and/or Progression of Chronic Illness:
� Differential Diagnosis includes: But not limited to sepsis, cellulitis, bacteremia, etc. etc.
Amount and/or Complexity of Data to be Reviewed and Analyzed
� I performed an independent evaluation of and my interpretation is:
EKG:
CT:
Xrays:cxr nad
Laboratory Studies:nl wbc, nl lacticbaseline anemia
Other:
� Review of other/old records reveals: Surgical records reviewed
� Clinical information was obtained by an independent historian: Mom who is bedside
� Prescriptions/Medications Considered but not given:
� Further testing considered but not performed:
Risk of Complications and/or Morbidity or Mortality of Patient Management
� Social determinants of health affecting care:
� Discussion with other providers (PCP, Hospitalists, Consultants, etc):
� Escalation of care including admission/observation vs risk of discharge considered: Antibiotics orders, Case discussed with Marti Douglass and Faby, photos attached, agree with management including IV fluids and antibiotics.
Plan is for drain removal tomorrow. Given that size of possible cellulitis are bilateral, it raises the question of whether or not this is reactive example suture reaction. Patient is stable, Dr. ANAHI HOLLEY aware of plan
ED Attending Note
-
Portions of this chart may have been created with voice recognition software.� Occasional wrong word or��sound alike� substitutions may have occurred due to the inherent limitations of voice recognition software.
Discharge Plan
Departure
Patient Disposition: Admit
Date of Disposition: 10/05/24
Time of Disposition: 22:25
Admit to: Telemetry
Presentation/result/management discussed w/ accepting MD/DO: Hospitalist
Condition: Fair
Discharge Problem:
Sepsis
Interventions
Interventions:
*Risk Screen - Suicide Last Done: 10/06/24 01:03
*General Assessment Last Done: 10/05/24 21:38
*Neglect/Abuse Screening Last Done: 10/05/24 20:24
*ED- Fall Risk Assessment Last Done: 10/05/24 21:38
*ED COVID-19 Vaccine History Last Done: 10/06/24 01:03
*Nursing Disposition Last Done: 10/06/24 00:36
ED-Skin Assessment Last Done: 10/05/24 21:35
Discharge Date and Time
Discharge Date/Time: 10/06/24 00:38
[2024-10-05 21:19] LABS: Hematocrit 32.1 % (37.0-47.0); Hemoglobin 11.2 g/dL (12.0-16.0); Mean Corp Hgb Conc. 34.9 g/dL (33.0-37.0); Mean Corpuscular Volume 99.4 fL (81.0-99.0); Nucleated Red Blood Cells % 0 %; Platelet Count 221 10^3/uL (130-400); Red Cell Dist. Width 12.9 % (11.5-14.5)
[2024-10-05] MEDS: NSS 1500 IV (21:23)
[2024-10-05] MEDS: TYLENOL 1000 MG PO (21:23)
[2024-10-05 21:37] VITALS: BP 102/55
[2024-10-05 21:38] VITALS: BMI 24.5
[2024-10-05 21:49] LABS: ALT (SGPT) 22 U/L (0-35); AST (SGOT) 17 U/L (14-36); Albumin 3.9 g/dl (3.5-5.0); Alkaline Phosphatase 113 U/L (38-126); Blood Urea Nitrogen 20 mg/dl (7-17); Calcium 9.3 mg/dl (8.4-10.2); Carbon Dioxide 29 mmol/L (22-30); Chloride 97 mmol/L (98-107); Estimated Creatinine Clearance 58 ml/min; Glucose 110 mg/dl (70-99); Potassium 4.0 mmol/L (3.5-5.1); Sodium 131 mmol/L (135-145); Total Protein 6.5 g/dl (6.3-8.2); eGFR > 60.00
[2024-10-05 22:05] VITALS: BP 113/56
--- NOTE | 2024-10-05 22:29 | HPS.HSE ---
Addendum entered and electronically signed by Martínez Campoverde DO 10/05/24 23:38:
Patient seen and examined independently. Agree with findings and plan as set forth by Eda Gordon PA-C.
Patient is a 48y F with PMH significant for invasive ductal carcinoma s/p neoadjuvant chemo and bilateral mastectomies with reconstruction who presents to ED complaining of redness and discomfort at bilateral drain sites as well as new fever this
PM. Patient underwent surgery on 09/24. Was recovering well until yesterday when she noted redness and increased pain. Patient states that drainage via CIRILO drains has not changed in volume or appearance.
Of note: patient was treated for suspected port infection prior to mastectomies with 3 weeks of oral antibiotics.
Ass:
SIRS
s/p Bilateral Mastectomies / Reconstruction (09/24)
Invasive Ductal Carcinoma s/p Neoadjuvant Chemo and Mastectomies
Recent Port Infection
José Miguel's Thyroiditis
Alopecia
Plan:
Admit for further evaluation and treatment.
Bilateral pain, erythema, etc at drain sites / surgical sites - ? inflammatory v infectious response.
Fever this evening prompted ED evaluation.
Follow-up culture data. Obtain prior outpatient cultures if possible.
Empiric abx for now and follow fever curve, serial exams, cultures, etc.
Breast Surgery / Plastic Surgery evaluations.
ID evaluation for additional recommendations.
Continue usual thyroid supplementation.
Supportive care / pain control / etc.
Original Note:
Family Physician
-
Family Physician: Chelo Morin
Chief Complaint
-
Fever
History of Present Illness
Patient is a 48 y/o female past medical history of invasive ductal carcinoma of the breast s/p neoadjuvant chemotherapy and recent bilateral mastectomies with reconstruction who presents with fever and increased redness around drain sites. Patient
reports yesterday she started to develop increased redness and pain at the bilateral drain sites. She denies any changes in the drainage bulbs and denies any drainage from around the drains themselves. However this evening she spiked a fever
prompting her to come to the emergency department for evaluation. Patient notes is currently taking cefadroxil following a port site infection earlier this month.
Medical History
Past Medical History
Past Medical History: Reports Other
Additional Past Medical History:
Invasive Ductal Carcinoma Left Breast
José Miguel's Thyroiditis
Migraine Headaches
Alopecia
Past Surgical History: Reports Other
Additional Past Surgical History:
Bilateral Mastectomy with Reconstruction
Social History
Tobacco: Non-smoker
Family History
Family History: Other (Mother: Pancreatic Cancer; Father: Prostate Cancer)
Allergies / Home Medications
Allergies reflects when Allergies were last updated in [employer].
Home Medications with original date entered in [employer]
Allergy/Medication List:
Allergies
Allergy/AdvReac Type Severity Reaction Status Date / Time
Penicillins Allergy Mild Hives/RASH Verified 10/05/24 22:43
Home Medications
Probiotic 1 dose PO DAILY 04/28/24
cholecalciferol (vitamin D3) 25 mcg (1,000 unit) tablet (Vitamin D3) 25 mcg PO DAILY 04/28/24
ferrous sulfate 27 mg iron tablet 27 mg PO DAILY 04/28/24
galcanezumab-gnlm 120 mg/mL subcutaneous syringe (Emgality) 120 mg SC QMONTH 04/28/24
magnesium 200 mg tablet 200 mg PO DAILY 04/28/24
minoxidil 2.5 mg tablet 0.6 mg PO DAILY 04/28/24
omega 1-vau-jdy-fish oil 60 mg-90 mg-500 mg capsule (Fish Oil) 1 cap PO DAILY 04/28/24
spironolactone 100 mg tablet 100 mg PO HS 04/28/24
sumatriptan succinate 100 mg tablet (Imitrex) 100 mg PO ONCE PRN migraine 04/28/24
thyroid (pork) 120 mg tablet ([place] Thyroid) 120 mg PO MOWEFR 04/28/24
thyroid (pork) 90 mg tablet ([place] Thyroid) 90 mg PO .TUTHSASU 04/28/24
vitamin B12 0.5 mg-folic acid 1 mg tablet 1 tab PO DAILY 04/28/24
Nuadapt 1 tab PO DAILY 04/29/24
Nutrafol 4 tab PO HS 04/29/24
fezolinetant 45 mg tablet ([place]) 45 mg PO HS 09/17/24
acetaminophen 500 mg capsule 1,000 mg (2 x 500 mg) PO QID PRN Pain #360 caps 09/24/24
cefadroxil 500 mg capsule 500 mg PO BID #42 caps 09/24/24
diazepam 5 mg tablet 5 mg PO TIDPRN PRN Muscle Spasms 14 days #42 tabs 09/24/24
tramadol 50 mg tablet 50 mg PO Q6HPRN PRN pain 7 days #15 tabs 09/24/24
Review of Systems
-
A 12 point ROS was completed and negative except as noted: Yes
Constitutional: Reports Fever and Chills
Respiratory: Denies Cough or Trouble Breathing
Cardiac: Denies Chest Pain or Palpitations
Abdomen/GI: Denies Abdominal Pain, Nausea or Vomiting
: Denies Dysuria or Frequency
Physical Exam
Vital Signs
Vital Signs
Temp Pulse Resp BP Pulse Ox
98.2 F 113 14 126/78 96
10/05/24 21:39 10/05/24 21:39 10/05/24 21:30 10/05/24 20:23 10/05/24 21:39
Physical Exam
General: Comfortable and Conversant
HEENT: Anicteric and Moist mucous membranes
Respiratory: Clear and Non Labored Respirations
Cardiac: S1/S2, Regular Rhythm and Tachycardia
GI: Soft and Non Tender
Rectal: Deferred by Provider
Musculoskeletal: No Clubbing and No Cyanosis
Skin: Warm, Dry and Other (Port incision line appears to have small defect but significant drainage and no surrounding erythema; Bilateral mastectomy drain site with moderate erythema and increased warmth to touch and slight tenderness to palpation;
Serosanguinous drainage noted in drain bulbs)
Neuro: Awake, Alert, Oriented and Nonfocal/grossly intact
Psych: Calm
Laboratory Results
-
10/05/24 21:11
10/05/24 21:11
Laboratory Results
Lactic Acid 0.6 mmol/L (0.7-2.0) L 10/05/24 21:10
Total Bilirubin 0.7 mg/dl (0.2-1.3) 10/05/24 21:11
AST 17 U/L (14-36) 10/05/24 21:11
ALT 22 U/L (0-35) 10/05/24 21:11
Alkaline Phosphatase 113 U/L (38-126) 10/05/24 21:11
Data Reviewed
-
Lab Data: Labs Reviewed by me
Impression/Plan
-
Systemic Inflammatory Response System
-Bilateral drain sites are erythematous raising concern for possible infection vs inflammatory reaction to drains
-Patient also reports recent port site infection
-Await blood cultures
-Continue vancomycin and cefepime
-Consult Infectious Disease
-Consult Breast and Plastic Surgery
Invasive Ductal Carcinoma Left Breast s/p Neoadjuvant Chemotherapy and B/L Mastectomy with Reconstruction
-Patient follows with Dr. Douglass and Dr. Moran
José Miguel's Thyroiditis
-Continue [place] Thyroid - Asked patient to bring from home if able
Migraine Headaches
-Patient maintained on Emgality as outpatient
Alopecia
-Continue minoxidil and spironolactone
DVT proph: Lovenox
Code Status: Full Code
[2024-10-05] MEDS: VANCOCIN 530 MG IV (22:56)
[2024-10-05 23:00] VITALS: BP 100/45
[2024-10-05] MEDS: LR 500 IV (23:03)
[2024-10-05 23:10] LABS: Urine Character Clear (Clear)
[2024-10-06 00:58] VITALS: BP 103/62; BMI 23.5
[2024-10-06] MEDS: STERILE WATER FOR INJECTION 10 ML IV ×5 (01:29→23:38)
[2024-10-06] MEDS: MAXIPIME 1000 MG IV ×5 (01:29→23:38)
[2024-10-06 03:02] VITALS: BP 98/66
[2024-10-06 07:33] VITALS: BP 102/65
[2024-10-06 07:55] LABS: Hematocrit 29.0 % (37.0-47.0); Hemoglobin 10.0 g/dL (12.0-16.0); Mean Corp Hgb Conc. 34.5 g/dL (33.0-37.0); Mean Corpuscular Volume 102.1 fL (81.0-99.0); Platelet Count 198 10^3/uL (130-400); Red Cell Dist. Width 12.7 % (11.5-14.5)
[2024-10-06 08:34] LABS: Blood Urea Nitrogen 14 mg/dl (7-17); Calcium 9.0 mg/dl (8.4-10.2); Carbon Dioxide 27 mmol/L (22-30); Chloride 108 mmol/L (98-107); Estimated Creatinine Clearance 87 ml/min; Glucose 95 mg/dl (70-99); Potassium 3.9 mmol/L (3.5-5.1); Sodium 138 mmol/L (135-145); eGFR > 60.00
[2024-10-06] MEDS: LONITEN 0.6 MG PO (08:42)
--- NOTE | 2024-10-06 08:54 | PHA.VAN.IN ---
Assessment
- Assessment
Renal Function: Appears similar to baseline
Maximum Temperature: 102.3
Minimum Temperature: 97.8
Concomitant Antimicrobials: cefepime
AUC Dosing Plan
- Dosing Variables
Dosing Weight (kg): 56.4
Dosing CrCl (ml/min): 87
Vd coefficient (L/kg): 0.7
- Empiric Dosing
Initial / Loading Dose: vancomycin 1500 mg
Maintenance Regimen: vancomycin 750 mg Q12H
Estimated AUC (mcg*h/mL): 515
Estimated Peak (mcg*h/mL): 31.6
Estimated Trough (mcg/ml): 13.6
Estimated Half Life (H): 9.0
- Monitoring
No levels ordered at this time: consider level in next few days
Pharmacokinetics Vancomycin I
- -
Patient Age: 48
Patient Sex: Female
Vancomycin Day #: 1
Indication: Skin And Soft Tissue
Requesting Provider: Eda Gordon
Pertinent Antimicrobial Allergies:
pcn
Height / Weight:
Height 5 ft 1 in
Actual Weight 56.416 kg
IBW in k.8
Adjusted BW in k.2
Pertinent Past Medical History: recent port site infection
- Vital Signs / Lab Results
Temp Pulse Resp BP Pulse Ox
98.9 F 99 16 102/65 100
10/06/24 07:33 10/06/24 08:42 10/06/24 07:33 10/06/24 08:42 10/06/24 07:33
Lab Results - Hematology
10/05/24 10/06/24
21:11 07:05
WBC 8.8 7.5
Lab Results - Chemistry
10/05/24 10/06/24
21:11 07:05
BUN 20 H 14
Creatinine 0.9 0.6
Estimated Creat Clear 58 87
Albumin 3.9
10/05/24 10/06/24
21:10 01:15
Lactic Acid 0.6 L Cancelled
Lab Results - Urine
10/05/24
22:59
Urine Nitrite (Reflex) Negative
Leukocyte Esterase Rfl Negative
--- NOTE | 2024-10-06 09:03 | VNURNOTE ---
Addendum entered by Corry Bee RN 10/06/24 12:02:
[facility] Resumption referral placed in [facility].
Original Note:
Chart reviewed. Patient is current with [facility]. Will continue to follow hospital course and DC plans.
[2024-10-06] MEDS: VANCOCIN 150 IV ×2 (09:36→17:45)
--- NOTE | 2024-10-06 10:07 | CON.ID ---
Consultation
-
Date/Time Consultation Requested: October 06, 2024 0040
Date/Time Consultation Performed: October 06, 2024 1010
Requesting Provider: Eda Klein PA-C
Performing Provider: Dr. Shirlene Jung
Reason for Consultation: SIRS, recent mastectomy and recent port infection
Chief Complaint / Past History
Chief Complaint
Fever and redness around breast drain sites
History of Present Illness
48-year-old female with recent diagnosis of left breast cancer status post neoadjuvant chemotherapy, then recently underwent bilateral mastectomies with immediate breast reconstruction on September 24, 2024. She had 4 drains postop, 2 of them removed.
Yesterday she noted irritation/discomfort around the bilateral breasts drain sites and she noted erythema. She then spiked a fever yesterday and therefore she was told to come to the ER. Her temperature was 102.3. UA negative. Chest x-ray
negative. She was started on vancomycin and cefepime. Patient reports she has been on cephalexin since the end of August. In August she developed fever, redness around the port site to small drainage hole while she was on vacation at the [facility].
She was called in cephalexin 500 mg 4 times daily then had follow-up with the breast surgeon. 09/10 Wound Culture was negative. She was maintained on cephalexin this whole time. The port site erythema resolved. She was told perhaps she had
inflammatory reaction to port suture. Bilateral breast drains with serous fluid. No cough/SOB/N/V/abd pain/diarrhea/urinary sxs.
Past History
Additional Past Medical History:
Left breast carcinoma s/p abi-adjuvant chemo
s/p bilateral mastectomies, sentinel lymph node mapping 09/24/24
s/p Bilateral immediate breast reconstruction with prepectoral tissue expanders 09/24/24
José Miguel's thyroiditis
migraine headaches
Alopecia
Allergy History:
Penicillins Allergy (Mild, Verified 10/05/24 22:43)
Hives/RASH
Medications Reviewed: Yes
Current Antibiotics:
Cefepime 1 g IV every 6 hours
Vancomycin IV
Social History
Tobacco: Non-Smoker
Alcohol: None
Drug: None
Personal:
Living: With Family
Family History
Family History: Not Pertinent
Review of Systems
Review of Systems
General: Fever and Chills; Negative Change in Appetite
HEENT: Negative Sinus Problems, Headache or Pharyngitis
Cardiovascular: Negative Chest Pain or Dyspnea
Respiratory: Negative Dyspnea or Cough
Gasteroenterology: Negative Nausea, Vomiting or Diarrhea
Genital / Urological: Negative Dysuria or Flank Pain
Endocrine: Negative Weakness
Neurological: Negative Dizziness
All systems: All other systems were reviewed and were negative
Vital Signs
Temp Pulse Resp BP Pulse Ox
98.9 F 99 16 102/65 100
10/06/24 07:33 10/06/24 08:42 10/06/24 07:33 10/06/24 08:42 10/06/24 07:33
Selected Entries
10/05/24
20:23
Temp 102.3 F H
Physical Exam
Physical Exam
Constitutional: No Acute Distress and Comfortable
Eyes: No Conjunctival Hemorrhage and Sclera Anicteric
Cardiovascular: Regular Rate and S1/S2
Pulmonary: Clear
Gastrointestinal: Soft, Non Tender and Non Distended
Genito-Urinary: Negative CVA Tenderness
Extremities: Negative Edema
Wound: Other (Chest wall reconstruction site with 2 CIRILO drains on each lateral side with large area surrounding erythema/warmth)
Neurological: AO x 3
Lines: Port (R chest wall, not accessed, no erythema, dry)
Lab / Diagnostic Study Results
10/06/24 07:05
10/06/24 07:05
Abs Immat Gran (auto) 0.0 10^3/uL (0-0.05) 10/05/24 21:11
Absolute Neuts (auto) 6.8 10^3/uL (1.4-6.5) H 10/05/24 21:11
Absolute Lymphs (auto) 1.3 10^3/uL (1.2-3.4) 10/05/24 21:11
Absolute Monos (auto) 0.6 10^3/uL (0.1-0.6) 10/05/24 21:11
Absolute Basos (auto) 0.0 10^3/uL (0-0.2) 10/05/24 21:11
Immature Gran % 0.2 % (0-0.5) 10/05/24 21:11
Neutrophils % 77.6 % (42.2-75.2) H 10/05/24 21:11
Lymphocytes % 15.2 % (20.5-51.1) L 10/05/24 21:11
Monocytes % 6.5 % (1.7-9.3) 10/05/24 21:11
Eosinophils % 0.3 % (0-6) 10/05/24 21:11
Basophils % 0.2 % (0-2) 10/05/24 21:11
Lactic Acid Cancelled 10/06/24 01:15
Microbiology Results
Micro:
10/05/24 21:25 Blood Culture - Pending
Blood/Venous
10/05/24 21:11 Blood Culture - Pending
Blood/Venous
10/05/24 CXR: No evidence of active cardiopulmonary disease.
Assessment / Plan
# Fever
# Post-op skin and soft tissue infection bilateral breasts at drain sites
# Breast ca s/p chemo; s/p bilateral mastectomies followed by immediate reconstruction 09/24/24.
- Unusual to develop cellulitis bilaterally unless systemic infection.
To consider inflammatory reaction to foreign body?
- Await blood cx's.
- Consider CT chest
- Should remove drains if feasible
- Agree with vancomycin and cefepime for now.
- Trend temps.
--- NOTE | 2024-10-06 10:50 | CM ---
Initial assessment completed. Patient is a 48 y/o female past medical history of invasive ductal carcinoma of the breast s/p neoadjuvant chemotherapy and recent bilateral mastectomies with reconstruction who presents with fever and increased redness
around drain sites.
Recent admission (09/24-09/25), discharged w/ [facility].
Patient resides w/ spouse and their 2 daughters, 9 and 16 years old, in a [facility]. Patient is independent in all areas. Patient drives, does not work.
No therapy hx, current w/ [facility].
Address, point of contact and insurance verified
PCP: Chelo Morin
Pharmacy: [facility]
Plan: Anticipate home, [place] w/ VN
[2024-10-06 11:02] VITALS: BP 125/37
--- NOTE | 2024-10-06 12:07 | VATNOTE ---
This Am Estephanie Rn notified me that she took over care for pt with hx of b/l mastectomy with lymph node removal with PIV present in Left FA which has been used to infuse ABX previously. B/L upper restriction bands applied to arms, PCT and nursing
staff made aware not to use upper extremities. PIV removed in left FA. MD Hwang made aware of situation and that pt with pain in left axilla starting this Am and stated he will round and touch base with the pt.. Order obtained to start PIV in
Left hand; placed without issue. plan of care continues to be followed, nursing staff made aware of all interventions.
--- NOTE | 2024-10-06 12:27 | CON.PS ---
Medical History
-
Chief Complaint: Bilateral drain site erythema
History of Present Illness:
Patient is well-known to me for history of bilateral mastectomy with immediate reconstruction with tissue expanders. She presented with pain and erythema the bilateral drain sites. She noted a fever prompting her admission.
Allergies / Home Medications
Allergy/AdvReac Type Severity Reaction Status Date / Time
Penicillins Allergy Mild Hives/RASH Verified 10/05/24 22:43
�Medication �Instructions �Recorded �Confirmed �Type
Probiotic 1 dose PO DAILY 04/28/24 10/05/24 History
cholecalciferol (vitamin D3) 25 25 mcg PO DAILY 04/28/24 10/05/24 History
mcg (1,000 unit) tablet (Vitamin
D3)
ferrous sulfate 27 mg iron tablet 27 mg PO DAILY 04/28/24 10/05/24 History
galcanezumab-gnlm 120 mg/mL 120 mg SC QMONTH 04/28/24 10/05/24 History
subcutaneous syringe (Emgality)
magnesium 200 mg tablet 200 mg PO DAILY 04/28/24 10/05/24 History
minoxidil 2.5 mg tablet 0.6 mg PO DAILY 04/28/24 10/05/24 History
omega 4-vnw-tcb-fish oil 60 mg-90 1 cap PO DAILY 04/28/24 10/05/24 History
mg-500 mg capsule (Fish Oil)
spironolactone 100 mg tablet 100 mg PO HS 04/28/24 10/05/24 History
sumatriptan succinate 100 mg 100 mg PO ONCE PRN migraine 04/28/24 10/05/24 History
tablet (Imitrex)
thyroid (pork) 120 mg tablet 120 mg PO MOWEFR 04/28/24 10/05/24 History
([place] Thyroid)
thyroid (pork) 90 mg tablet 90 mg PO .TUTHSASU 04/28/24 10/05/24 History
([place] Thyroid)
vitamin B12 0.5 mg-folic acid 1 mg 1 tab PO DAILY 04/28/24 10/05/24 History
tablet
Nuadapt 1 tab PO DAILY 04/29/24 10/05/24 History
Nutrafol 4 tab PO HS 04/29/24 10/05/24 History
fezolinetant 45 mg tablet (Veozah) 45 mg PO HS 09/17/24 10/05/24 History
acetaminophen 500 mg capsule 1,000 mg (2 x 500 mg) PO QID PRN 09/24/24 10/05/24 Rx
Pain #360 caps
cefadroxil 500 mg capsule 500 mg PO BID #42 caps 09/24/24 10/05/24 Rx
diazepam 5 mg tablet 5 mg PO TIDPRN PRN Muscle Spasms 09/24/24 10/05/24 Rx
14 days #42 tabs
tramadol 50 mg tablet 50 mg PO Q6HPRN PRN pain 7 days 09/24/24 10/05/24 Rx
#15 tabs
Physical Exam
Vital Signs
Temp 98.9 F 10/06/24 07:33
Temp route: Oral 10/06/24 07:33
Pulse 99 10/06/24 08:42
Rhythm: Normal sinus rhythm 10/06/24 08:00
With- Bundle Branch Block Confi, PVC's Monomorphic 10/06/24 08:00
Resp Rate 16 10/06/24 07:33
Blood pressure 102/65 10/06/24 08:42
Blood pressure extremity used: Left upper arm 10/06/24 07:33
Position: Lying 10/06/24 07:33
MAP (cuff-Brigido Monitor) 61 10/05/24 23:00
SaO2 100 10/06/24 07:33
Oxygen Mode of Delivery Room air 10/06/24 08:00
Can the patient verbally communicate their pain? Yes 10/06/24 08:00
Pain scale ratin 10/06/24 01:03
Actual Weight 124 lb 6 oz 10/06/24 00:58
Body Mass Index (BMI) 23.5 10/06/24 00:58
Physical exam:
No acute distress
No increased work of breathing
Bilateral tissue expanders in place without evidence of infection or fluid collection
Drains in place with serosanguineous output
Cellulitis surrounding drain sites, no gross purulence
Lab Results
10/06/24 07:05
10/06/24 07:05
Assessment / Plan
-
Status post bilateral stage I reconstruction with tissue expanders after mastectomy, drain site erythema
Discussed with the patient and remove the bilateral drains. She should continue her IV antibiotics until cultures are clear. Then she can continue off IV and on oral regimen. There is no evidence that the tissue expanders are infected at this
time. Will follow-up closely
--- NOTE | 2024-10-06 14:43 | W.PN.HOSP.TC ---
Addendum entered and electronically signed by Renan Hwang DO 10/07/24 15:13:
- Sepsis was present on admission and is now resolved.
Original Note:
Today's Communication/Plan
-
Assessment / Plan
Assessment / Plan
General: No Apparent Distress, Comfortable and Conversant
HEENT: NormoCephalic, Moist mucous membranes, Atraumatic
Respiratory: Clear and Non Labored Respirations
Cardiac: S1/S2 and Regular Rhythm; No Rub or Gallop
GI: Soft, Non Tender, Non Distended and Normal Bowel Sounds
Musculoskeletal: No Edema, status post bilateral mastectomy, surgical drains in place
Skin: Warm and dry
: NO Ann
Neuro: Awake, Alert, Nonfocal/grossly intact
Psych: Calm and Intact Judgment/Insight
Ms. Zavala is a 48-year-old female with a medical history of invasive ductal carcinoma (status post neoadjuvant chemotherapy and bilateral mastectomy with reconstruction 09/24/2024, drains in place) who presented with fever and redness with pain around
surgical drain sites.
Postmastectomy pain and fever:
- Patient experiencing bilateral erythema and pain with associated fever of 102.3 �F at time of presentation
- No leukocytosis, cultures with no growth to date
- Continuing antibiotics with vancomycin and cefepime for now, will narrow as able
- Follow fever curve
- Appreciate guidance from plastic surgery and ID
- Pain control as needed
- Will need ongoing outpatient follow-up with her oncologist, Drs. Douglass and Dean
José Miguel's thyroiditis:
- Continue home [place] Thyroid 120 mg Sunday
DVT prophylaxis: Lovenox
CODE STATUS: Full code
Total time spent on today's encounter was 40 minutes
Anticipated Discharge: 24 - 48 hours
Subjective/Interval History
-
Date of Service: October 06, 2024
Patient was seen and examined at bedside this morning. She reports feeling better after being started on antibiotics, but continues to have irritation in her bilateral drain sites from mastectomies on 09/24/2024.
Objective Data
-
Labs:
Laboratory Results
10/06/24
07:05
WBC 7.5
Hgb 10.0 L
Hct 29.0 L
Plt Count 198
Sodium 138
Potassium 3.9
Chloride 108 H
Carbon Dioxide 27
BUN 14
Creatinine 0.6
Glucose 95
Calcium 9.0
Vital Signs:
Vital Signs
Temp Pulse Resp BP Pulse Ox
98.1 F 103 16 125/37 98
10/06/24 11:02 10/06/24 11:02 10/06/24 11:02 10/06/24 11:02 10/06/24 11:02
I&O
10/05/24 10/06/24 10/07/24
06:59 06:59 06:59
Intake Total 0 / 0
Balance 0 / 0
Review of Systems
-
History Source: Patient
All other systems: Reviewed and negative
Breast: Reports Other (Irritation at drain site)
Physical Exam
-
General: No Apparent Distress
--- NOTE | 2024-10-06 15:04 | PTCARENOTE ---
CIRILO drains removed by surgery this afternoon. Reinforced dressing due to drainage.
[2024-10-06 15:49] VITALS: BP 112/75
[2024-10-06] MEDS: ULTRAM 50 MG PO (16:09)
[2024-10-06] MEDS: LOVENOX 40 MG SC (17:40)
[2024-10-06 23:30] VITALS: BP 114/60
[2024-10-06] MEDS: FLUSH (NSS) 2 FLUSH IV (23:41)
[2024-10-07] MEDS: STERILE WATER FOR INJECTION 10 ML IV ×2 (05:07→13:04)
[2024-10-07] MEDS: MAXIPIME 1000 MG IV ×2 (05:08→13:04)
[2024-10-07] MEDS: VANCOCIN 150 IV (05:12)
[2024-10-07] MEDS: FLUSH (NSS) 2 FLUSH IV (05:13)
[2024-10-07 07:45] VITALS: BP 104/58
[2024-10-07] MEDS: LONITEN 0.6 MG PO (08:19)
--- NOTE | 2024-10-07 09:26 | W.PN.ID1 ---
Date of Service
Date of Service: October 07, 2024
Today's Communication
Can de-escalate Vanco/cefepime to Levofloxacin 750mg po daily through 10/12/24.
Assessment / Plan
# Fever- resolved
# Post-op skin and soft tissue foreign body inflammatory reaction at bilateral breasts at drain sites
# Breast ca s/p chemo; s/p bilateral mastectomies followed by immediate reconstruction 09/24/24.
- Suspect foreign body inflammatory reaction over cellulitis, as erythema now virtually resolved after bilateral drains removed.
- blood cx's neg to date.
- Can de-escalate Vanco/cefepime to Levofloxacin 750mg po daily through 10/12/24.
Chief Complaint
-: Cellulitis
Subjective / Review of Systems
She feels much improved after drains removed.
Vital Signs / Physical Exam
Vital Signs
Vital Signs
Temp Pulse Resp BP Pulse Ox
97.6 F 76 18 104/58 97
10/07/24 07:45 10/07/24 07:45 10/07/24 07:45 10/07/24 07:45 10/07/24 07:45
Physical Exam
Constitutional: No Acute Distress and Comfortable
Cardiovascular: Regular Rate and S1/S2
Pulmonary: Clear
Gastrointestinal: Non Tender, Non Distended and Normal Bowel Sounds
Extremities: Negative Edema
Wound: Other (Bilateral lateral chest wall erythema resolving at previous Archie drain sites. )
Neurological: AO x 3
Lines: Port (RCW no erythema)
Objective Data
Lab Data
Lab Results
10/06/24 07:05
10/06/24 07:05
Estimated Creat Clear 87 ml/min 10/06/24 07:05
Lactic Acid Cancelled 10/06/24 01:15
Total Bilirubin 0.7 mg/dl (0.2-1.3) 10/05/24 21:11
AST 17 U/L (14-36) 10/05/24 21:11
ALT 22 U/L (0-35) 10/05/24 21:11
Alkaline Phosphatase 113 U/L (38-126) 10/05/24 21:11
Most recent labs reviewed.
Micro Results:
10/05/24 21:25 Blood Culture - Preliminary
Blood/Venous No Growth in 24 hours- Final report to follow
10/05/24 21:11 Blood Culture - Preliminary
Blood/Venous No Growth in 24 hours- Final report to follow
10/05/24 CXR: No evidence of active cardiopulmonary disease.
Care Review
Plan reviewed with: Physician (Dr. Hwang)
--- NOTE | 2024-10-07 12:03 | PN.CDI ---
CDI
- -
CDI:
Physician Documentation Request
Admit Date: 10/06/24 00:02
Dear Doctor Eri,
Patient admitted for mastectomy site infection
ED Physician Documentation: 'Sepsis'
H&P: 'SIRS'
10/06 ID Consult: 'Post-op skin and soft tissue infection bilateral breasts at drain sites'
Selected Entries
10/05/24
20:23
Temp 102.3 F H
10/05/24
20:23 10/05/24
21:00 10/05/24
21:37
Pulse 136 122 113
The diagnosis of sepsis was documented on 10/05, but is not consistently noted in subsequent documentation.
Please clarify the following:
____ - Sepsis was present on admission and is now resolved.
____ - Sepsis was present on admission and is still being monitored, evaluated or treated
____ - Sepsis was ruled out
____ - Sepsis is still a likely, suspected, probable diagnosis
____ - Other
Use of terms such as suspected, likely, concern for, or probable (associated with a specific diagnosis that is being evaluated, monitored, or treated as if it exists) are acceptable and can be coded in the inpatient setting, when documented at the
time of discharge.
Thank you,
Swetha Huston RN, BSN
CDI Specialist
Available via [employer] text
Please use your independent medical judgment in providing your response.
[2024-10-07 12:50] VITALS: BP 130/85
--- NOTE | 2024-10-07 12:56 | W.DCSUMMARY ---
Discharge Summary
Discharge Data
Date of Admission: 10/06/24
Date of Discharge: 10/07/24
Total time spent discharging patient (in min): 40
-
Pending Results: No
Hospital Course
Ms. Zavala is a 48-year-old female with a medical history of invasive ductal carcinoma (status post neoadjuvant chemotherapy and bilateral mastectomy with reconstruction 09/24/2024, drains in place) who presented with fever and redness with pain around
surgical drain sites. At time of presentation she had a fever of 102.3 �F. She had no leukocytosis and cultures have remained sterile. She was initially started on antibiotics with vancomycin and cefepime. Clinically she did not appear to have
an infection. She was evaluated by her plastic surgeon who removed her surgical drains with subsequent improvement in her pain. She remained afebrile after that initial fever. She was evaluated by the infectious disease team who recommended
transitioning antibiotics to levofloxacin to continue a short course through 10/12/2024. At time of hospital discharge she was medically stable. She will need close follow-up with her oncology team and primary care physician.
General: No Apparent Distress, Comfortable and Conversant
HEENT: NormoCephalic, Moist mucous membranes, Atraumatic
Respiratory: Clear and Non Labored Respirations
Cardiac: S1/S2 and Regular Rhythm; No Rub or Gallop
GI: Soft, Non Tender, Non Distended and Normal Bowel Sounds
Musculoskeletal: No Edema, status post bilateral mastectomy, surgical drains removed
Skin: Warm and dry
: NO Ann
Neuro: Awake, Alert, Nonfocal/grossly intact
Psych: Calm and Intact Judgment/Insight
Discharge Plan
-
Patient Disposition: Home (Routine Discharge)
Discharge Diagnosis/Procedures: Pain and fever after bilateral mastectomy and breast reconstruction
Activity Restrictions/Additional Instructions:
Ms. Zavala is a 48-year-old female with a medical history of invasive ductal carcinoma (status post neoadjuvant chemotherapy and bilateral mastectomy with reconstruction 09/24/2024, drains in place) who presented with fever and redness with pain around
surgical drain sites. At time of presentation she had a fever of 102.3 �F. She had no leukocytosis and cultures have remained sterile. She was initially started on antibiotics with vancomycin and cefepime. Clinically she did not appear to have
an infection. She was evaluated by her plastic surgeon who removed her surgical drains with subsequent improvement in her pain. She remained afebrile after that initial fever. She was evaluated by the infectious disease team who recommended
transitioning antibiotics to levofloxacin to continue a short course through 10/12/2024. At time of hospital discharge she was medically stable. She will need close follow-up with her oncology team and primary care physician.
Referrals:
Chelo Morin CRNP [Family Provider, General]
Nish Prieto MD [Active, Plastic Surgery]
Prescriptions:
New
levofloxacin 750 mg tablet
750 mg PO DAILY 6 Days Qty: 6 0RF
Continued
spironolactone 100 mg Tablet
100 mg PO HS
Emgality Syringe 120 mg/mL Syringe
120 mg SC QMONTH
sumatriptan succinate [Imitrex] 100 mg Tablet
100 mg PO ONCE PRN (Reason: migraine)
minoxidil 2.5 mg Tablet
0.6 mg PO DAILY
thyroid (pork) [[place] Thyroid] 90 mg Tablet
90 mg PO .TUTHSASU
thyroid (pork) [[place] Thyroid] 120 mg Tablet
120 mg PO MOWEFR
omega 1-xqe-rpf-fish oil [Fish Oil] 60-90-500 mg Capsule
1 cap PO DAILY
magnesium 200 mg Tablet
200 mg PO DAILY
vitamin B53-mhnst acid 0.5-1 mg Tablet
1 tab PO DAILY
cholecalciferol (vitamin D3) [Vitamin D3] 25 mcg (1,000 unit) Tablet
25 mcg PO DAILY
ferrous sulfate 27 mg iron Tablet
27 mg PO DAILY
Probiotic
1 dose PO DAILY
Nuadapt
1 tab PO DAILY
Nutrafol
4 tab PO HS
Veozah 45 mg Tablet
45 mg PO HS
tramadol 50 mg Tablet
50 mg PO Q6HPRN PRN (Reason: pain) 7 Days Qty: 15 0RF
acetaminophen 500 mg capsule
1,000 mg PO QID PRN (Reason: Pain) Qty: 360 0RF
diazepam 5 mg Tablet
5 mg PO TIDPRN PRN (Reason: Muscle Spasms) 14 Days Qty: 42 0RF
Discontinued
cefadroxil 500 mg capsule
500 mg PO BID Qty: 42 0RF
Discharge Orders:
Discharge Patient (As Directed); Ordered 10/07/24
Ordered By: Renan Hwang
Discharge Date and Time
Print Language: IVORIAN
--- NOTE | 2024-10-07 14:45 | PTCARENOTE ---
IV discontinued. Discharge paperwork printed and reviewed with patient who verbalized understanding. Pt transported off the floor via wheelchair with all belongings from the room.
== END 2024-10-07 15:07 | disposition home health service (06) | DRG 862 ==
LOC: 4 EAST ACU 00:02
PROVIDERS: Physician Assistant Medical; ADMITTING PHYSICIAN Hospitalist; ATTENDING PHYSICIAN Internal Medicine; CONSULT PHYSICIAN Surgery Plastic and Reconstructive Surgery; EMERGENCY PHYSICIAN Emergency Medicine; FAMILY PHYSICIAN Nurse Practitioner Adult Health; OTHER PHYSICIAN Internal Medicine Infectious Disease
DX: T81.44XA Sepsis following a procedure, initial encounter (principal); A41.9 Sepsis, unspecified organism; Y83.8 Other surgical procedures as the cause of abnormal reaction of the patient, or of later complication, without mention of misadventure at the time of the procedure; E06.3 Autoimmune thyroiditis; G89.18 Other acute postprocedural pain; G43.909 Migraine, unspecified, not intractable, without status migrainosus; L65.9 Nonscarring hair loss, unspecified; C50.912 Malignant neoplasm of unspecified site of left female breast; Z90.13 Acquired absence of bilateral breasts and nipples; Z92.21 Personal history of antineoplastic chemotherapy; Z98.890 Other specified postprocedural states
CPT/HCPCS: 71046; 80048; 80053; 81003; 83605; 85025; 85027; 87040; 93005; 96365; 96366; 99285

== ENCOUNTER → 2024-10-09 11:19 | Outpatient (REF) | payer OTHER, SELFPAY ==
[2024-10-09 11:31] LABS: Hematocrit 34.5 % (37.0-47.0); Hemoglobin 11.7 g/dL (12.0-16.0); Mean Corp Hgb Conc. 33.9 g/dL (33.0-37.0); Mean Corpuscular Volume 101.5 fL (81.0-99.0); Platelet Count 283 10^3/uL (130-400); Red Cell Dist. Width 12.1 % (11.5-14.5)
[2024-10-09 13:31] LABS: ALT (SGPT) 18 U/L (0-35); AST (SGOT) 22 U/L (14-36); Albumin 4.1 g/dl (3.5-5.0); Alkaline Phosphatase 105 U/L (38-126); Blood Urea Nitrogen 16 mg/dl (7-17); Calcium 9.8 mg/dl (8.4-10.2); Carbon Dioxide 29 mmol/L (22-30); Chloride 102 mmol/L (98-107); Glucose 96 mg/dl (70-99); Potassium 4.3 mmol/L (3.5-5.1); Sodium 140 mmol/L (135-145); Total Protein 6.6 g/dl (6.3-8.2); eGFR > 60.00
== END ==
LOC: OIDL 11:19
PROVIDERS: ATTENDING PHYSICIAN Internal Medicine Hematology & Oncology; FAMILY PHYSICIAN Nurse Practitioner Adult Health
DX: C50.412 Malignant neoplasm of upper-outer quadrant of left female breast (principal)
CPT/HCPCS: 36415; 80053; 85025; 86376; 86800

== ENCOUNTER 2024-10-16 06:18 | Day surgery (SDC) | payer OTHER, SELFPAY ==
[2024-10-16] VITALS (15 sets, daily range): BP systolic 74–117; BP diastolic 46–63; BMI 22.5
[2024-10-16] MEDS: TYLENOL 1000 MG PO (13:49)
[2024-10-16] MEDS: NORMOSOL-R/PLASMALYTE-A 1000 IV (13:51)
[2024-10-16] MEDS: VANCOCIN 200 IV (14:00)
[2024-10-16] MEDS: LOVENOX 40 MG SC (14:13)
--- NOTE | 2024-10-16 15:11 | W.IMMPOSTOP ---
Surgical Immed Post Op Note
-
Primary Surgeon: Rafat
Assisting Surgeon: None
Pre-op Diagnosis: Extruded right port-a-cath
Post-op Diagnosis: Same
Procedure Performed: Removal right port-a-cath
Anesthesia Type: TIVA
Specimen / Cultures: none
Estimated Blood Loss: 2cc
Complications: None
Operative Findings: None
--- NOTE | 2024-10-16 15:13 | OR.RPT ---
Operative Report
Operative Report
Date of procedure: 10/16/2024
Surgeon: Rafat
Preoperative diagnosis: Extruded right Port-A-Cath
Postoperative diagnosis: Same
Procedure: Removal of right Port-A-Cath
Patient is a 48-year-old female with HER2 positive left breast carcinoma who had been undergoing neoadjuvant chemotherapy and had a right sided Port-A-Cath placed. Once that was completed she underwent bilateral mastectomies with implant-based
reconstruction. She presented yesterday to the clinic for a postoperative check and her right sided Port-A-Cath was noted to be extruded and visible. She presents now for removal.
Patient presented to the same-day surgical services unit where she verified site and procedure. DVT and antibiotic prophylaxis were provided and she was taken to the operating room. In the supine position intravenous sedation was delivered left
chest was prepped and draped in usual sterile fashion and the team performed an appropriate timeout procedure.
All tissues were anesthetized with 1% lidocaine plain and the previous insertion site incision was excised using the blade. Flaps were elevated using the cautery and the catheter was removed from the vascular tract intact. The vascular tract was
suture-ligated with 3-0 plain gut. The port extruded easily from the port pocket. Hemostasis was maintained with the cautery and Marcaine 0.5% plain was instilled into all tissues.
The wound was closed using simple interrupted 3-0 plain on subcutaneous tissue and a running subcuticular 4 Monocryl on skin with a few simple interrupted Monocryl's. Sterile compressive dressing was applied. All sponge needle and instrument
counts were correct and the patient was transferred to the recovery room in stable condition
([id number])
== END 2024-10-16 16:43 | disposition home or self-care (01) ==
LOC: SDS 06:18
PROVIDERS: ATTENDING PHYSICIAN Surgery
DX: C50.912 Malignant neoplasm of unspecified site of left female breast (principal); T82.594A Other mechanical complication of infusion catheter, initial encounter; Y83.1 Surgical operation with implant of artificial internal device as the cause of abnormal reaction of the patient, or of later complication, without mention of misadventure at the time of the procedure; Z45.2 Encounter for adjustment and management of vascular access device; Z17.0 Estrogen receptor positive status [ER+]
CPT/HCPCS: 36590

== ENCOUNTER → 2024-10-23 14:04 | Outpatient (REF) | payer OTHER, SELFPAY | LOC: RCS 14:04 | PROVIDERS: ATTENDING PHYSICIAN Internal Medicine Cardiovascular Disease; FAMILY PHYSICIAN Nurse Practitioner Adult Health | DX: R00.0 Tachycardia, unspecified (principal); Z85.3 Personal history of malignant neoplasm of breast; T45.1X5D Adverse effect of antineoplastic and immunosuppressive drugs, subsequent encounter | CPT/HCPCS: 93306; 93356 ==

== ENCOUNTER 2024-11-07 10:01 | Outpatient (RCR) | payer OTHER, SELFPAY | END 2024-11-07 23:59 | disposition home or self-care (01) | LOC: RPT 10:01 | PROVIDERS: ATTENDING PHYSICIAN Surgery Plastic and Reconstructive Surgery; FAMILY PHYSICIAN Internal Medicine | DX: R53.0 Neoplastic (malignant) related fatigue (principal); Z42.1 Encounter for breast reconstruction following mastectomy; Z73.6 Limitation of activities due to disability; L90.5 Scar conditions and fibrosis of skin | CPT/HCPCS: 97110; 97112; 97140; 97162; 97530 ==

== ENCOUNTER 2024-11-12 10:03 | Outpatient (RCR) | payer OTHER, SELFPAY | END 2024-11-12 23:59 | disposition home or self-care (01) | LOC: RPT 10:03 | PROVIDERS: ATTENDING PHYSICIAN Surgery Plastic and Reconstructive Surgery; FAMILY PHYSICIAN Internal Medicine | DX: R53.0 Neoplastic (malignant) related fatigue (principal); Z42.1 Encounter for breast reconstruction following mastectomy; Z73.6 Limitation of activities due to disability; L90.5 Scar conditions and fibrosis of skin | CPT/HCPCS: 97110; 97112; 97140; 97530 ==

== ENCOUNTER 2024-12-26 09:12 | Outpatient (RCR) | payer OTHER, SELFPAY | END 2024-12-26 23:59 | disposition home or self-care (01) | LOC: RPT 09:12 | PROVIDERS: ATTENDING PHYSICIAN Surgery Plastic and Reconstructive Surgery; FAMILY PHYSICIAN Internal Medicine | DX: C50.912 Malignant neoplasm of unspecified site of left female breast (principal); R53.0 Neoplastic (malignant) related fatigue (principal); Z42.1 Encounter for breast reconstruction following mastectomy; Z73.6 Limitation of activities due to disability; L90.5 Scar conditions and fibrosis of skin; M62.81 Muscle weakness (generalized); Z90.13 Acquired absence of bilateral breasts and nipples; Z92.21 Personal history of antineoplastic chemotherapy | CPT/HCPCS: 97110; 97140; 97530 ==

== ENCOUNTER 2024-12-31 06:10 | Day surgery (SDC) | payer OTHER, SELFPAY ==
[2024-12-31] VITALS (7 sets, daily range): BP systolic 102–124; BP diastolic 59–80; BMI 22.5
[2024-12-31] MEDS: TYLENOL 1000 MG PO (14:25)
[2024-12-31] MEDS: NORMOSOL-R/PLASMALYTE-A 1000 IV (14:25)
[2024-12-31] MEDS: VANCOCIN 200 IV (14:37)
--- NOTE | 2024-12-31 17:14 | W.IMMPOSTOP ---
Surgical Immed Post Op Note
-
Primary Surgeon: ALLEN Prieto MD
Assisting Surgeon:
Pre-op Diagnosis: History of breast cancer
Post-op Diagnosis: Same
Procedure Performed: Bilateral removal of tissue expanders, insertion of bilateral silicone gel implants for breast reconstruction, fat grafting
Anesthesia Type: General
Specimen / Cultures: None
Estimated Blood Loss: 15 cc
Complications: None
Operative Findings: As expected
--- NOTE | 2024-12-31 17:14 | OR.RPT ---
Operative Report
Operative Report
Date of surgery: 12/31/2024
Surgeon: ALLEN Prieto MD
Preoperative diagnosis:
1. History of breast cancer
2. Status post bilateral mastectomies
Postoperative diagnosis: Same
Procedure:
1. Bilateral removal of tissue expanders
2. Bilateral insertion of silicone gel breast implants
3. Bilateral extensive capsulotomies and partial capsulectomy
4. Left lateral capsulorrhaphy, breast
5. Fat grafting to the bilateral breasts with donor site medial and lateral thighs, 100 cc
Anesthesia: General
EBL: 15 cc
Complications: None
Specimen: None
Indication for procedure: Patient is a 49-year-old female with a history of breast cancer status post bilateral nipple sparing mastectomies. Immediate reconstruction was performed with tissue expanders and she followed a routine postoperative
course. She desired second stage reconstruction with bilateral silicone gel breast implants. Given her thin nature, fat grafting would be performed and attempts to limit implant rippling and visibility. Given her thin tissues and the prepec
nature of her reconstruction, which she desired, she was aware that implant visibility may still be present risks of silicone gel breast implants were reviewed at length including capsular contracture, visibility, rippling and wrinkling, rupture,
LISA I, LISA ALCL, infection and malposition. Risk of fat grafting were reviewed including fat necrosis and oil cyst creation. Donor site abnormalities may exist. She understood these risks desire to proceed.
Procedure in detail: Patient was identified preoperatively and the surgical site was confirmed with the bilateral breast and medial and lateral thighs. Acceptable donor sites were marked out as well as the inframammary incisions for reexcision.
All questions were answered and consents were confirmed. Patient was taken back to the op room placed supine on the table. Anesthesia was induced and the patient was prepped and draped in usual sterile fashion using ChloraPrep solution. A timeout
for patient safety was performed was confirmed the preoperative antibiotics have been administered and bilateral SCDs were in place. 1% lidocaine with epinephrine was injected into the proposed incisional sites. Series of access sites made with a
15 blade for the injection of tumescent solution consisting of 1 L normal saline with lidocaine and 1 amp of epi. While tumescent setting, attention was drawn to the right breast where the inframammary scar was incised. Dissection continued and a
capsulotomy was performed to expose the senior engineering team leader. The senior engineering team leader was removed and the pocket was evaluated. Unincorporated ADM was removed via sharp excision. Superior medial capsulotomies were performed to allow correct implant placement.
Meticulous hemostasis was ensured and the wound bed was irrigated with double antibiotic solution followed by dilute Betadine. Using a 'no touch' technique and after donning new gloves, 355 cc silicone gel implant was placed into the right breast
pocket after confirming with a gel sizer. The wound was closed with 2-0 Vicryl followed by 3-0 and 4-0 Monocryl. Attention was drawn to the left breast where the exact same procedure was performed. The inframammary scar was excised and dissection
continued with Bovie electrocautery and a capsulotomy was performed. The senior engineering team leader was removed and the implant pocket was evaluated. There was no unincorporated ADM on the side. The lateral boundary of the breast pocket required correction via
thermal and suture capsulorrhaphy. This was performed with bipolar and an 0 PDS. The superior medial aspect of the pocket required expansion via capsulotomies. Partial capsulectomy was performed inferomedially. Marcaine blocks were then
performed, of note these were done bilaterally. After confirming meticulous hemostasis, another 355 cc silicone gel implant was placed into the left breast pocket using a 'no touch' technique after donning new gloves. Mendez funnel was utilized.
The wound was closed in layers with 2-0 Vicryl followed by 3-0 and 4-0 Monocryl. Attention was then drawn to the fat grafting donor sites where hand harvest of the aspirate was performed. This was then processed on [employer] by rolling. A total of
100 cc of fat was available for injection. This was micronized. An 18-gauge was used to make a subdermal access point for a 22-gauge cannula. Fat graft was then injected via the sites bilaterally into the superior medial aspects of the breast
ensuring to stay above the capsule and ADM. The fat was distributed evenly. Access sites were closed with 5-0 fast. Patient tolerated procedure well was performed out complication paired WERE correct in the case. She is extubated taken PACU
further care.
[2024-12-31] MEDS: DILAUDID 0.25 MG IV (20:56)
[2024-12-31] MEDS: ULTRAM 50 MG PO (21:00)
[2024-12-31] MEDS: TORADOL 15 MG IV (21:00)
[2024-12-31] MEDS: VALIUM 5 MG PO (21:49)
== END 2024-12-31 20:40 | disposition home or self-care (01) ==
LOC: SDS 06:10
PROVIDERS: ATTENDING PHYSICIAN Surgery Plastic and Reconstructive Surgery
DX: Z85.3 Personal history of malignant neoplasm of breast (principal); Z90.13 Acquired absence of bilateral breasts and nipples
CPT/HCPCS: 11970; C1789

== ENCOUNTER → 2025-01-23 08:53 | Outpatient (REF) | payer OTHER, SELFPAY | LOC: WDC 08:53 | PROVIDERS: ATTENDING PHYSICIAN Surgery Plastic and Reconstructive Surgery; FAMILY PHYSICIAN Nurse Practitioner Adult Health | DX: N64.4 Mastodynia (principal); Z42.1 Encounter for breast reconstruction following mastectomy | CPT/HCPCS: 76642 ==

== ENCOUNTER 2025-01-26 08:39 | Outpatient (RCR) | payer OTHER, SELFPAY | END 2025-01-26 23:59 | disposition home or self-care (01) | LOC: RPT 08:39 | PROVIDERS: ATTENDING PHYSICIAN Surgery Plastic and Reconstructive Surgery; FAMILY PHYSICIAN Internal Medicine | DX: C50.912 Malignant neoplasm of unspecified site of left female breast (principal); R53.0 Neoplastic (malignant) related fatigue; Z73.6 Limitation of activities due to disability; L90.5 Scar conditions and fibrosis of skin; M62.81 Muscle weakness (generalized); Z90.13 Acquired absence of bilateral breasts and nipples; Z92.21 Personal history of antineoplastic chemotherapy; Z42.1 Encounter for breast reconstruction following mastectomy | CPT/HCPCS: 97110; 97140; 97164 ==

== ENCOUNTER → 2025-02-04 14:49 | Outpatient (REF) | payer OTHER, SELFPAY | LOC: RCS 14:49 | PROVIDERS: ATTENDING PHYSICIAN Internal Medicine Cardiovascular Disease; FAMILY PHYSICIAN Nurse Practitioner Adult Health | DX: Z85.3 Personal history of malignant neoplasm of breast (principal); I49.3 Ventricular premature depolarization; T45.1X5D Adverse effect of antineoplastic and immunosuppressive drugs, subsequent encounter | CPT/HCPCS: 93306; 93356 ==

== ENCOUNTER 2025-03-09 09:33 | Outpatient (RCR) | payer OTHER, SELFPAY | END 2025-03-09 23:59 | disposition home or self-care (01) | LOC: RPT 09:33 | PROVIDERS: ATTENDING PHYSICIAN Surgery Plastic and Reconstructive Surgery; FAMILY PHYSICIAN Internal Medicine | DX: C50.912 Malignant neoplasm of unspecified site of left female breast (principal); R53.0 Neoplastic (malignant) related fatigue; Z73.6 Limitation of activities due to disability; L90.5 Scar conditions and fibrosis of skin; M62.81 Muscle weakness (generalized); Z90.13 Acquired absence of bilateral breasts and nipples; Z92.21 Personal history of antineoplastic chemotherapy | CPT/HCPCS: 97110; 97112; 97140; 97530 ==

== ENCOUNTER → 2025-03-11 13:51 | Outpatient (REF) | payer OTHER, SELFPAY | LOC: RAD 13:51 | PROVIDERS: ATTENDING PHYSICIAN Nurse Practitioner Adult Health | DX: J10.1 Influenza due to other identified influenza virus with other respiratory manifestations (principal); R05.1 Acute cough | CPT/HCPCS: 71046 ==